=== PATIENT | female | born 1995 | race Caucasian/White ===

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

== ENCOUNTER 2020-08-11 16:43 | Emergency (ER) | payer OTHER ==
[~2020-08-11] VITALS: Ht 154.9 cm; Wt 64.4 kg
[~2020-08-11 16:43] MED LIST changes: +ZOFRAN4 MG PO; +ZOVIRAX400 MG PO
== END 2020-08-12 04:30 | disposition home or self-care (01) ==
LOC: ED 16:43
DX: D50.9 Iron deficiency anemia, unspecified (principal); R60.0 Localized edema; J45.909 Unspecified asthma, uncomplicated
CPT/HCPCS: 36430; 71045; 80053; 81001; 82728; 83540; 84443; 84466; 84703; 85025; 85027; 86850; 86900; 86901; 86920; 99284-25; P9016

== ENCOUNTER 2020-11-16 14:51 | Emergency (ER) | payer OTHER ==
[~2020-11-16] VITALS: Ht 154.9 cm; Wt 86.2 kg
== END 2020-11-16 17:10 | disposition home or self-care (01) ==
LOC: ED 14:51
DX: S93.402A Sprain of unspecified ligament of left ankle, initial encounter (principal); X50.1XXA Overexertion from prolonged static or awkward postures, initial encounter; J45.909 Unspecified asthma, uncomplicated; Z79.899 Other long term (current) drug therapy
CPT/HCPCS: 73610; 99283-25

== ENCOUNTER 2021-01-16 08:05 | Day surgery (SDC) | payer OTHER ==
[~2021-01-16] VITALS: Ht 154.9 cm; Wt 86.4 kg
[~2021-01-16 08:05] MED LIST changes: +IRON325 M1 PO; +MULTI VITAMIN1 EACH PO
--- NOTE | 2021-01-16 09:49 | NUR ---
01/16/21 0949 Nette Villa 0944-PATIENT ARRIVED TO PACU ON 4L NC RR EVEN ORAL AIRWAY IN PLACE. PATIENT NONAROUSABLE. LAYING LEFT LATERAL. SR. IVF INFUSING. ABDOMEN SOFT.
--- NOTE | 2021-01-16 11:14 | OR ---
[facility] [address] [place], [place] [address] Signed DATE OF OPERATION: 01/16/2021 SURGEON: Felicia Mcclure MD PREOPERATIVE DIAGNOSES: 1. Anemia. 2. Maternal uncle with colonic polyps. POSTOPERATIVE DIAGNOSES: 1. Mild diffuse gastritis. 2. Small to moderate sized hiatal hernia (37-34 cm). 3. Ulcerated distal esophagitis. 4. 4 mm polyp at 6 cm. PROCEDURES: 1. Esophagogastroduodenoscopy with CLOtest and biopsies of the antrum and distal esophagus. 2. Colonoscopy with cold biopsies x2 and hot biopsy. ESTIMATED BLOOD LOSS: None. INDICATIONS: Nayana is a 25-year-old female, asked to see me for both upper and lower endoscopy. She has been found to be anemic for quite some time. She had been in the emergency room in August 2020. She received 2 units of packed red blood cells. Her hemoglobin improved from 6.2 up to 9.0. The mean cell volume also improved from 58 up to 67. She has been taking iron tablets. She has no hematemesis or hematochezia. She has an IUD in place and therefore no monthly cycles. However, she did demonstrate sleep apnea even while in the emergency room. Her O2 sats kept dropping during that time as well. She is supposed to wear CPAP mask, but generally does not. She has a very full round face with a heavy neck, chest and abdomen. She also likes to use marijuana. In that regard, we asked for monitored anesthesia care today which worked out very well for her. She also told me that her maternal uncle had colonic polyps. In the office, I gave her a pamphlet on both upper and lower endoscopy. We had reviewed the nature of the two tests. She understands there is risk including, but not limited to gas bloating, crampy abdominal pain, bleeding, perforation requiring surgery, and missed diagnosis. She had expressed understanding and wished to proceed. PROCEDURE NOTE: Electronically Signed By: FELICIA MCCLURE MD 01/16/21 1114 PATIENT NAME: NAYANA WELCH OPERATIVE REPORT DATE OF : 97 REPORT #: [id number] PHYSICIAN: FELICIA MCCLURE MD PCP: DAQUAN IRENE PA-C REPORT IS CONFIDENTIAL AND NOT TO BE RELEASED WITHOUT AUTHORIZATION [facility] [address] [place] [address] Signed Nayana was taken into our endoscopy suite and placed in a supine semi-recumbent position. She was given monitored anesthesia care with propofol per our nurse parts counter representative. A bite block was utilized. The adult gastroscope was introduced and advanced under direct visualization of camera. The duodenum and pyloric channel were unremarkable. The stomach showed mild diffuse erythematous changes. We went ahead and took a biopsy of the antrum for CLOtest as well as pathologic review. We saw no ulcerations. Upon retroflexion of scope, we can see her hiatal hernia. It measured out roughly from 37 back to 34 cm. The scope was then withdrawn up through the area of the GE junction, which was compliant without stricture. There was no gastric or esophageal varices. She did have moderate disruption to the Z-line. No Anderson's mucosa. She did have a linear ulcer on one side. Currently not bleeding. We took a biopsy of this area for pathologic review. The middle and upper esophagus were unremarkable. After this, the gas was suctioned out and the gastroscope removed. Nayana tolerated the procedure quite well. Nayana was then rotated into the left lateral decubitus position. She was maintained on IV sedation per our nurse parts counter representative. A digital rectal exam was performed and this was unremarkable. Her sphincter tone was somewhat lax. The adult colonoscope had been introduced and advanced under direct visualization up into the cecum itself. It took a little extra sedation and abdominal compression in order to advance the scope. Her prep was quite excellent. We could easily see the appendiceal orifice and the ileocecal valve. The scope was then slowly withdrawn. The entire colon was unremarkable. We took a couple biopsies out of the colon for pathologic review due to her anemia. The scope was then retroflexed in the rectum and there was no additional pathology noted above the anal canal. She had one tiny polyp about 4 mm in size roughly 6 cm above the anal canal. It was easily removed with a hot biopsy forceps. After this, the gas was suctioned out and colonoscope removed. Nayana tolerated the procedure quite well. RECOMMENDATIONS: I will see Nayana back in my office in 7 to 14 days to review her results. She should strongly consider an H2 kitty or proton-pump inhibitor. These can be purchased [id number] or prescribed through her primary care provider. Felicia Mcclure MD ALB/JOANL /[id number] Electronically Signed By: FELICIA MCCLURE MD 01/16/21 1114 PATIENT NAME: NAYANA WELCH OPERATIVE REPORT DATE OF : [birth year] REPORT #: [id number] PHYSICIAN: FELICIA MCCLURE MD PCP: DAQUAN IRENE PA-C REPORT IS CONFIDENTIAL AND NOT TO BE RELEASED WITHOUT AUTHORIZATION [facility] [address] [place], [place] [address] [address] Signed cc: LILLIE Randall MD Copies: DAQUAN IRENE PA-C, ANDREW L MD ~ Electronically Signed By: FELICIA MCCLURE MD 01/16/21 1114 PATIENT NAME: NAYANA WELCH OPERATIVE REPORT DATE OF : [birth year] REPORT #: [id number] PHYSICIAN: FELICIA MCCLURE MD PCP: DAQUAN IRENE PA-C REPORT IS CONFIDENTIAL AND NOT TO BE RELEASED WITHOUT AUTHORIZATION
--- NOTE | 2021-01-17 16:31 | PATH ---
[facility] [address] [place], [place] [address] Signed SPECIMEN(S): A ANTRUM/PYLORUS BIOPSY SPECIMEN(S): B ESOPHAGEAL BIOPSY SPECIMEN(S): C RANDOM COLON BIOPSY SPECIMEN(S): D RANDOM COLON BIOPSY SPECIMEN(S): E RECTAL POLYP AT 6 CM SPECIMEN SOURCE: A. ANTRUM/PYLORUS BIOPSY B. ESOPHAGEAL BIOPSY C. RANDOM COLON BIOPSY D. RANDOM COLON BIOPSY E. RECTAL POLYP AT 6 CM CLINICAL HISTORY: History of iron deficiency anemia. Postop: Hiatal hernia, distal esophagitis with ulcer, gastritis, rectal polyp x1. MICROSCOPIC DESCRIPTION: Histologic sections of all submitted blocks are examined by light microscopy. These findings, together with the gross examination, support the pathologic diagnosis. FINAL PATHOLOGIC DIAGNOSIS: A. Stomach, antrum/pylorus, biopsy: - Gastric antral mucosa with chronic focally active Helicobacter pylori associated gastritis. B. Esophagus, biopsy: - Esophageal squamous mucosa with reactive epithelial changes and ulceration. - Negative for fungal organisms by special stains (GMS; valid controls). C. Colon, biopsy: - Colonic mucosa with no significant pathologic changes. D. Colon, biopsy: - Colonic mucosa with no significant pathologic changes. E. Rectum, 6 cm, polypectomy: - Hyperplastic polyp. BRP:cml:C2NR GROSS DESCRIPTION: Five specimens are received in five containers, labeled "AM." A. The specimen, labeled "AM, 1," and designated on the requisition "antrum/pylorus," is received in formalin and consists of one smyth soft tissue fragment that measures 0.5 cm in greatest dimension. PATIENT NAME: RAJWINDER WELCH PATHOLOGY DATE OF : [birth year] REPORT #: [id number] PHYSICIAN: NOLAN JOHNSON PCP: DAQUAN IRENE PA-C REPORT IS CONFIDENTIAL AND NOT TO BE RELEASED WITHOUT AUTHORIZATION [facility] [address] [place], [place] [address] Signed The specimen is entirely submitted in cassette (A1). B. The specimen, labeled "AM, 2," and designated on the requisition "distal esophagus," is received in formalin and consists of two smyth soft tissue fragment(s) that measure 0.3-0.4 cm in greatest dimension. The specimen is entirely submitted in cassette (B1). C. The specimen, labeled "AM, 3," and designated on the requisition "random colon," is received in formalin and consists of one smyth soft tissue fragment that measures 0.3 cm in greatest dimension. The specimen is entirely submitted in cassette (C1). D. The specimen, labeled "AM, 4," and designated on the requisition "random colon," is received in formalin and consists of one smyth soft tissue fragment that measures 0.3 cm in greatest dimension. The specimen is entirely submitted in cassette (D1). E. The specimen, labeled "AM, 5," and designated on the requisition "rectal polyp at 6 cm," is received in formalin and consists of one smyth soft tissue fragment that measures 0.3 cm in greatest dimension. The specimen is entirely submitted in cassette (E1). AT (under the direct supervision of a pathologist) The Gross Description was prepared using a voice recognition system. The report was reviewed for accuracy; however, sound-alike word errors, addition and/or deletions may occur. If there is any question about this report, please contact Client Services. ADDITIONAL NOTES: Immunohistochemical and/or in situ hybridization studies were performed on this case with the appropriate positive controls that react as expected. This test was developed and its performance characteristics determined by [facility]. It has not been cleared or approved by the U.S. Food and Drug Administration. The FDA has determined that such clearance or approval is not necessary. This test is used for clinical purposes. It should not be regarded as investigational or for research. [facility] is certified under the Clinical Laboratory Improvement Amendments of 1988 (CLIA) as qualified to perform high complexity clinical laboratory testing. This assay has not been validated for specimens that have been decalcified. PERFORMING LABORATORY: The technical component was performed by [facility], [address] [place] [id number] (Gas Turbine Mechanic: Marta Pat MD; CLIA# [id number]). Professional interpretation was performed by PATIENT NAME: RAJWINDER WELCH PATHOLOGY DATE OF : [birth year] REPORT #: [id number] PHYSICIAN: NOLAN JOHNSON PCP: DAQUAN IRENE PA-C REPORT IS CONFIDENTIAL AND NOT TO BE RELEASED WITHOUT AUTHORIZATION [facility] [address] [place], [place] [address] Signed [facility], [address] [address] (CLIA# [id number]). Diagnostician: Cheo Schofield MD Pathologist Electronically Signed 01/17/2021 Copies: ~ PATIENT NAME: RAJWINDER WELCH PATHOLOGY DATE OF : [birth year] REPORT #: [id number] PHYSICIAN: NOLAN JOHNSON PCP: DAQUAN IRENE PA-C REPORT IS CONFIDENTIAL AND NOT TO BE RELEASED WITHOUT AUTHORIZATION
== END 2021-01-16 10:30 | disposition home or self-care (01) ==
LOC: OPS 08:05 → DS 08:05 → OPS 08:15
PROVIDERS: ATTEND Colon & Rectal Surgery
PROC: 0D5P8ZZ Destruction of Rectum, Via Natural or Artificial Opening Endoscopic (ICD-10-PCS; 2021-01-16)
PROC: 0DB38ZX Excision of Lower Esophagus, Via Natural or Artificial Opening Endoscopic, Diagnostic (ICD-10-PCS; principal; 2021-01-16 08:15)
PROC: 0DB78ZX Excision of Stomach, Pylorus, Via Natural or Artificial Opening Endoscopic, Diagnostic (ICD-10-PCS; 2021-01-16 08:15)
DX: K62.1 Rectal polyp (principal); J45.909 Unspecified asthma, uncomplicated; E66.9 Obesity, unspecified; D50.9 Iron deficiency anemia, unspecified; K29.70 Gastritis, unspecified, without bleeding; K22.10 Ulcer of esophagus without bleeding; K44.9 Diaphragmatic hernia without obstruction or gangrene; Z20.822 Contact with and (suspected) exposure to COVID-19
CPT/HCPCS: 83009; J2001; J2405; J2704; J3010; J7121

== ENCOUNTER 2024-08-12 16:04 | Emergency (ER) | payer OTHER ==
[~2024-08-12] VITALS: Ht 154.9 cm; Wt 92.0 kg
[2024-08-12] MEDS ORDERED: LOSARTAN POTASS25 MG PO (16:21)
[2024-08-12] MEDS ORDERED: OMEPRAZOLE20 MG PO (16:22)
[2024-08-12] MEDS ORDERED: TRAMADOL HCL50 MG PO (17:28)
[2024-08-12 17:38] VITALS: BP 135/73
== END 2024-08-12 17:38 | disposition home or self-care (01) ==
LOC: ED 16:04
DX: R07.89 Other chest pain (principal); J45.909 Unspecified asthma, uncomplicated; I10 Essential (primary) hypertension; Z79.899 Other long term (current) drug therapy
CPT/HCPCS: 71045; 99283-25

== ENCOUNTER 2024-09-02 14:31 | Emergency (ER) | payer OTHER ==
[~2024-09-02] VITALS: Ht 154.9 cm; Wt 90.4 kg
[~2024-09-02 14:31] MED LIST changes: +LOSARTAN POTASS25 MG PO; +OMEPRAZOLE20 MG PO; +TRAMADOL HCL50 MG PO
--- OUTSIDE RECORDS SUMMARY | 2024-09-02 14:38 | XMS ---
PreManage Notification: RAJWINDER WELCH Security Expander Events No recent Security Events currently on file CRITERIA MET - [facility] - 2 Visits in 30 Days CARE PROVIDERS -, [facility] Dentist: [facility] PHONE: [phone] -[place]- Dentist: [facility] Current [facility] PHONE: [phone] [facility]/Center: [facility] PHONE: [phone] Ankush has no Care Guidelines for this patient. E.D. VISIT COUNT (12 MO.) 3 [facility] TOTAL 3 NOTE: Visits indicate total known visits. ED/UCC VISIT TRACKING (12 MO.) 09/02/2024 14:32 [facility] TYPE: Emergency COMPLAINT: - LEFT FOOT INJURY 09/01/2024 13:59 [facility] TYPE: Emergency COMPLAINT: - FOOT INJURY 08/12/2024 16:06 [facility] TYPE: Emergency COMPLAINT: - FALL DIAGNOSES: - Essential (primary) hypertension - Other chest pain - Other fci (current) drug therapy - Unspecified asthma, uncomplicated INPATIENT VISIT TRACKING (12 MO.) No inpatient visits to display in this time frame [email or web address]
[2024-09-02] MEDS ORDERED: LISINOPRIL10 MG PO (14:58)
[2024-09-02 15:42] VITALS: BP 146/94
== END 2024-09-02 15:42 | disposition home or self-care (01) ==
LOC: ED 14:31
DX: S92.352A Displaced fracture of fifth metatarsal bone, left foot, initial encounter for closed fracture (principal); J45.909 Unspecified asthma, uncomplicated; G47.30 Sleep apnea, unspecified; I10 Essential (primary) hypertension; W10.9XXA Fall (on) (from) unspecified stairs and steps, initial encounter; Z79.899 Other long term (current) drug therapy
CPT/HCPCS: 73630; 99283